=== PATIENT | male | born 1930 | race Caucasian/White ===

== ENCOUNTER 2017-01-16 13:19 | Inpatient (IN) | payer OTHER ==
[~2017-01-16] VITALS: Ht 182.9 cm; Wt 81.6 kg
[2017-01-16] MEDS ORDERED: FLUMAZENIL 0.1 MG/ML INJ 10ML MDV IV ONE (13:45)
[2017-01-16 14:45] LABS: Basophils # (auto) 0 uL; Basophils % (auto) 0.2 % (0.0-2.0); Eosinophils # (auto) 0 uL; Lymphocytes # (auto) 0.5 uL; Mean Corpuscular Hgb Conc. 34.3 g/dL (32.0-36.0); Monocytes # (auto) 0.1 uL; White Blood Cell 2.4 10^3/uL (4.4-10.8)
[2017-01-16 14:47] LABS: Eosinophils % (auto) 0.5 % (0.0-7.0); Hematocrit 30.5 % (41.0-53.0); Hemoglobin 10.5 g/dL (13.5-17.5); Lymphocytes % (auto) 22.4 % (10.0-50.0); Mean Corpuscular Hemoglobin 38.5 pg (28.0-32.0); Mean Corpuscular Volume 112.4 fL (80.0-100.0); Mean Platelet Volume 7.8 fL (6.9-10.8); Monocytes % (auto) 3.1 % (0.0-12.0); Neutrophils # (auto) 1.8 uL; Neutrophils % (auto) 73.8 % (37.0-80.0); Nucleated Red Blood Cells % 0.1 %; Platelet Count (auto) 200 10^3/uL (140-450); Red Cell Distribution Width 19.9 % (11.8-14.3)
[2017-01-16 14:56] LABS: INR 1.26 (0.9-1.15); Partial Thromboplastin Time 26.6 sec (22.64-33.71); Prothrombin Time 13.8 sec (9.37-12.3)
[2017-01-16 15:11] LABS: Albumin 2.7 g/dL (3.4-5.0); BUN/Creatinine Ratio 4.2; Calcium 9.3 mg/dL (8.5-10.1); Potassium 4.4 mmol/L (3.5-5.1); Total Protein 7.9 g/dL (6.4-8.2)
[2017-01-16 15:27] LABS: B-Type Natriuretic Peptide 2169.24 pg/mL (0-100)
[2017-01-16 15:38] LABS: Temperature: 23.5 C (20.0-25.0)
[2017-01-16] MEDS ORDERED: ENOXAPARIN SOD 80 MG/0.8ML SYRINGE SC ONE (16:00)
[2017-01-16] MEDS ORDERED: LEVOFLOXACIN 500MG 100 ML IV ONE (16:00)
[2017-01-16] MEDS ORDERED: NITROGLYCERIN 0.4 MG SL TAB SL PRN (16:45)
[2017-01-16] MEDS ORDERED: ONDANSETRON HCL 4 MG/2 ML VIAL IV PRN (16:45)
[2017-01-16] MEDS ORDERED: hydrALAZINE HCL 20 MG/ML VL IV PRN (16:45)
[2017-01-16] MEDS ORDERED: MORPHINE SULF INJ 2 MG/ML SYRINGE 1ML IV PRN (16:45)
[2017-01-16] MEDS ORDERED: DEXTROSE (50%) 50ML SYRG IV PRN (16:45)
[2017-01-16] MEDS ORDERED: ACETAMINOPHEN 500 MG TAB PO PRN (16:45)
[2017-01-16] MEDS ORDERED: FUROSEMIDE 40 MG/4 ML VIAL IV ONE (16:45)
[2017-01-16] MEDS: ACCU-CHEK COMFORT CURVE STRIP VI SCH ×2 (17:00→23:09)
[2017-01-16] MEDS: InsuLIN REG 1unit/0.01ml Soln (100units/ml) SC SCH ×2 (17:00→22:00)
[2017-01-16] MEDS ORDERED: ASPirin 81 mg TAB PO ONE (17:15)
[2017-01-16 17:35] LABS: Vitamin B12 1229 pg/mL (211-911)
[2017-01-16 17:39] LABS: Temperature: 23.1 C (20.0-25.0)
[2017-01-16] MEDS ORDERED: LABETALOL HCL 5 MG/ML 4ML SYRINGE IV PRN (17:45)
[2017-01-16] MEDS ORDERED: VANCOMYCIN PER PHARMACY 0 MG IV SCH (18:00)
[2017-01-16] MEDS ORDERED: TAMSULOSIN HYDROCHLORIDE 0.4 MG CAP PO SCH (18:00)
[2017-01-16 18:19] LABS: Allen Test Yes; Base Excess 4.9 mmol/L (-2.0-2.0); Blood 02Sat 94.5 % (96-100); Blood COHb 0.2 % (0.5-1.5); Blood MetHb 0.4 % (0.0-1.5); HCO3 28.3 mmol/L (22-26.0); HHb 5.5 % (0.0-5.0); MODE NASAL CANNULA; O2Hb 93.9 % (94.0-97.0); PCO2 36.9 mmHg (35.0-45.0); PCO2(T) 36.9 mmHg (35.0-45.0); PO2 83.1 mmHg (80.0-100.0); PO2(T) 83.1 mmHg (80.0-100.0); Sample Type Arterial; pH 7.502 (7.350-7.450)
[2017-01-16] MEDS ORDERED: cefTRIAXone 1GM/50ML D5W 50 ML IV ONE (18:30)
[2017-01-16] MEDS ORDERED: VANCOMYCIN 1GM/250ML D5W 250 ML IV ONE (21:30)
[2017-01-16 22:00] VITALS: BP 131/64
[2017-01-16] MEDS: metroNIDAZOLE 500MG/100ML 100 ML IV SCH (23:46)
[2017-01-17 05:00] VITALS: BP 144/62
[2017-01-17 05:47] LABS: Urine Bilirubin Negative (Negative); Urine Blood 2+ /uL (Negative); Urine Color Yellow (Yellow); Urine Glucose Normal (Normal); Urine Ketone TRACE (Negative); Urine Nitrite POSITIVE (Negative); Urine RBC 36 /hpf (0 - 3); Urine Urobilinogen Normal (Negative); Urine pH 8.5 (5.0-8.0)
[2017-01-17] MEDS: metroNIDAZOLE 500MG/100ML 100 ML IV SCH ×2 (06:13→15:13)
[2017-01-17] MEDS: ACCU-CHEK COMFORT CURVE STRIP VI SCH ×2 (06:13→12:16)
[2017-01-17] MEDS: InsuLIN REG 1unit/0.01ml Soln (100units/ml) SC SCH ×2 (06:13→11:30)
[2017-01-17 06:43] LABS: Hemoglobin 8.7 g/dL (13.5-17.5); Platelet Count (auto) 193 10^3/uL (140-450); White Blood Cell 3.9 10^3/uL (4.4-10.8)
[2017-01-17 06:46] LABS: Hematocrit 25.4 % (41.0-53.0); Mean Corpuscular Hemoglobin 38.7 pg (28.0-32.0); Mean Corpuscular Hgb Conc. 34.5 g/dL (32.0-36.0); Mean Corpuscular Volume 112.2 fL (80.0-100.0)
[2017-01-17 06:54] LABS: Red Cell Distribution Width 20.4 % (11.8-14.3)
[2017-01-17 06:59] LABS: BUN/Creatinine Ratio 4.7; Calcium 9.6 mg/dL (8.5-10.1); Potassium 5.3 mmol/L (3.5-5.1)
[2017-01-17 07:48] LABS: Metamyelocytes % 0; Myelocytes % 0; Promyelocytes % 0; Reactive Lymphocytes 0
[2017-01-17 08:00] VITALS: BP 190/100
[2017-01-17 08:02] LABS: Macrocytosis Marked; Platelet Estimate Adequate
[2017-01-17 08:03] LABS: Anisocytosis Moderate
[2017-01-17 09:00] VITALS: BP 138/71
[2017-01-17] MEDS ORDERED: cefTRIAXone 1GM/50ML D5W 50 ML IV SCH (09:00)
[2017-01-17] MEDS ORDERED: ASPirin 81 mg TAB PO SCH (10:00)
[2017-01-17] MEDS ORDERED: ACETAMINOPHEN 650 MG RECT SUPP PR PRN (11:30)
[2017-01-17 13:00] VITALS: BP 161/81
[2017-01-17 14:23] VITALS: BP 161/81
[2017-01-19 03:06] LABS: Vitamin B1, Whole Blood 95.7 nmol/L (66.5-200.0)
== END 2017-01-17 19:04 | disposition short-term general hospital (02) | DRG 871 ==
LOC: ER 13:19 → TELE 13:20 → TELE-CENTR 21:40
PROVIDERS: ADMIT Internal Medicine; ATTEND Family Medicine
DX: A41.9 Sepsis, unspecified organism (principal); G93.41 Metabolic encephalopathy; E43 Unspecified severe protein-calorie malnutrition; I50.33 Acute on chronic diastolic (congestive) heart failure; N18.6 End stage renal disease; N39.0 Urinary tract infection, site not specified; I13.2 Hypertensive heart and chronic kidney disease with heart failure and with stage 5 chronic kidney disease, or end stage renal disease; E11.21 Type 2 diabetes mellitus with diabetic nephropathy; G89.29 Other chronic pain; M54.5 Low back pain; J44.9 Chronic obstructive pulmonary disease, unspecified; D64.9 Anemia, unspecified; E11.22 Type 2 diabetes mellitus with diabetic chronic kidney disease; Z68.24 Body mass index [BMI] 24.0-24.9, adult; Z99.2 Dependence on renal dialysis
CPT/HCPCS: 36415; 36600; 70450; 71010; 80048; 80053; 80202; 81001; 82140; 82607; 82746; 82805; 82962; 83605; 83880; 84425; 84443; 84484; 85007; 85025; 85027; 85610; 85730; 87040; 87081; 87086; 93306; J0696; J1956; J3490